=== PATIENT | male | born 1990 | race Caucasian/White ===

== ENCOUNTER 2025-02-11 14:22 | Emergency (ER) | payer OTHER ==
[2025-02-11 15:11] LABS: BASOPHILS PERCENT AUTO 0.3 % (0.0-1.0); EOSINOPHILS ABSOLUTE AUTO 0.1 K/mm3 (0.0-0.4); EOSINOPHILS PERCENT AUTO 0.8 % (0.0-6.0); HEMATOCRIT 49.2 % (42.0-52.0); HEMOGLOBIN 16.7 gm/dl (14.0-18.0); IMMATURE GRAN ABSOLUTE AUTO 0.06 K/mm3 (0.00-0.05); IMMATURE GRAN PERCENT AUTO 0.4 % (0.0-0.4); LYMPHOCYTES ABSOLUTE AUTO 2.7 K/mm3 (1.0-4.8); LYMPHOCYTES PERCENT AUTO 18.8 % (24.0-44.0); MEAN CORPUSCULAR HEMOGLOBIN 29.7 pg (28.0-32.0); MEAN CORPUSCULAR HGB CONC 33.9 g/dl (32.0-36.0); MEAN CORPUSCULAR VOLUME 87.4 fl (83.0-99.0); MEAN PLATELET VOLUME 10.5 fl (9.4-12.4); MONOCYTES ABSOLUTE AUTO 1.3 K/mm3 (0.0-0.8); MONOCYTES PERCENT AUTO 8.9 % (0.0-8.0); NEUTROPHILS ABSOLUTE AUTO 10.1 K/mm3 (1.8-7.7); NEUTROPHILS PERCENT AUTO 70.8 % (41.0-71.0); PLATELET COUNT,PLT 300 K/mm3 (150-400); RED BLOOD CELL COUNT 5.63 M/mm3 (4.52-5.90); WHITE BLOOD CELL COUNT,WBC 14.23 K/mm3 (3.9-11.3)
[2025-02-11 15:40] LABS: A/G RATIO 1.2 (1-2); ALBUMIN 4.3 g/dl (3.4-5.0); ANION GAP 13.1 (5-15); BILIRUBIN TOTAL 0.9 mg/dL (0.2-1.0); BUN/CREATININE RATIO 14.6 (14-18); C-REACTIVE PROTEIN 0.16 mg/dL (<0.30); CALCIUM 9.3 mg/dL (8.5-10.1); CREATININE 1.3 mg/dL (0.7-1.3); EST CRCL DRUG DOSING (CG) 92.19 mL/min; POTASSIUM,K 4.1 mEq/L (3.5-5.1); TSH 1.851 uIU/mL (0.358-3.74)
== END 2025-02-11 16:23 | disposition home or self-care (01) ==
LOC: JD.ED 14:22
DX: R11.0 Nausea (principal); R03.0 Elevated blood-pressure reading, without diagnosis of hypertension; Z91.011 Allergy to milk products
CPT/HCPCS: 36415; 71045; 71045-26; 80053; 83690; 83735; 84443; 84484; 85025; 86140; 93005; 99285